=== PATIENT | female | born 1965 | race Caucasian/White ===

== ENCOUNTER → 2016-12-31 | Outpatient (CLI) | payer BC ==
[~2016-12-31] MED LIST: CITA20TA4 PO
--- NOTE | 2017-01-01 07:38 | MAMMOGRAPHY REPORT ---
BILATERAL DIGITAL SCREENING MAMMOGRAM TOMOSYNTHESIS WITH CAD: 12/31/2016 CLINICAL HISTORY: Routine screening. Patient has no complaints. TECHNIQUE: Breast tomosynthesis in addition to standard 2D mammography was performed. Current study was also evaluated with a Computer Aided Detection (CAD) system. COMPARISON: Comparison is made to exams dated: 12/29/2015 mammogram, 12/28/2013 mammogram, 12/28/2012 mamm ogram, 12/24/2011 mammogram, 08/22/2010 mammogram - [facility], and 05/27/2008. BREAST COMPOSITION: There are scattered areas of fibroglandular density in both breasts. FINDINGS: Numerous circular mole markers overlie the breasts. There is a stable ribbon shaped metal lic biopsy marker in the left upper outer quadrant. No new suspicious mass, architectural distortion or cluster of microcalcifications is seen. IMPRESSION: ACR BI-RADS CATEGORY 1: NEGATIVE There is no mammographic evidence of malignancy. A 1 year screening mammogram is recommended. The pa tient will receive written notification of the results. Approximately 10% of breast cancers are not detected with mammography. A negative mammographic report should not delay biopsy if a clinically suggestive mass is present. Roxanne Fuller M.D. ay/:12/31/2016 17:14:19 [place]: Sanam BRADSHAW(J Carlos)(M), [facility] letter sent: Normal 1/2 BI-RADS Code: ACR BI-RADS Category 1: Negative
== END | disposition home or self-care (01) ==
LOC: C.MAMM 12:13
PROVIDERS: ATTEND Family Medicine
DX: Z12.31 Encounter for screening mammogram for malignant neoplasm of breast (principal)

== ENCOUNTER 2018-10-16 07:53 | Observation (INO) ==
--- NOTE | 2018-09-30 10:43 | PAT Medication Instructions ---
Medication Instructions Date of Service September 30, 2018 Home Medications diphenhydramine HCl [Benadryl] 50 - 75 mg PO HS Take morning of surgery NOTHING TO EAT OR DRINK AFTER MIDNIGHT Take evening before surgery diphenhydramine HCl [Benadryl] 50 - 75 mg PO HS Other Notes If you have any questions please call us at [phone] or [phone] or [phone] or [phone]
--- NOTE | 2018-09-30 11:49 | Anesthesiology Consultation ---
Date of Service September 30, 2018 Assessment & Plan (1) Encounter for pre-operative examination: Chart Review Chart Review: Acceptable Risk for Surgery and Patient seen in Pre Admission Testing Consults Requested none Teaching & Discussion Pre-Anesthesia Teaching/Discussion Notes: Instructed NPO after midnight before surgery, except medications with 15 cc of water. Medication instructions provided according to the PAT guidelines. History Surgery Operation Date: 10/16/18 07:00 Proposed Procedures p Total Laparoscopic Hysterectomy, Bilateral Salpingectomy and Cystoscopy, Possible Bilateral Salpingo-Oophorectomy - Ami Charles Height/Weight Height: 5 ft 8 in Weight: 102.5 kg Allergies Allergy/AdvReac Type Severity Reaction Status Date / Time amoxicillin Allergy Unknown RASH, Verified 09/29/18 08:36 SWELLING prednisone Allergy Unknown MOOD SWINGS Verified 09/29/18 08:36 Sulfa (Sulfonamide Allergy Unknown RASH, Verified 09/29/18 08:36 Antibiotics) SWELLING Medications Home Medications Medication Instructions Recorded Confirmed Last Taken diphenhydramine HCl [Benadryl] 50 - 75 mg PO HS 09/29/18 09/29/18 Unknown Past Medical History Medical History Anxiety History of kidney stones Neurofibromatosis Uterine fibroid Past Surgical History Surgical History History of breast biopsy History of colonoscopy W/ POLYPECTOMY History of lithotripsy History of tonsillectomy and adenoidectomy History of wisdom tooth extraction Past Anesthesia History No Hx of Anesthesia Complications and No Family Hx of Anesthesia Complications History of PONV No Motion Sickness Screening History of Motion Sickness: No Social History Smoking Status: Never smoker Do You Dip or Chew Tobacco: No Hx Alcohol Use: Yes Alcohol type: wine alcohol intake frequency: holidays/special occasions only Hx Substance Use: No substance use type: does not use Exercise / Class Metabolic Activity II 4-5 Yardwork/Stairs/Walk up hill (Able to climb FOS. Denies CP or SOB. ) Review of Systems Patient denies chest pain, shortness of breath, dyspnea on exertion, joint pain, reflux, cough, wheezing, palpitations. Physical Exam Vital Signs BP: 125/81 P: 90 R: 16 T: 94% on RA SPO2: 97.6 Constitutional + obese ENMT Thyromental Distance: > or= 3.5 Finger Breadths (3.5) Mallampati Class: II Neck normal visual inspection and trachea midline; neck extension not limited Respiratory normal respiratory effort Auscultation: lungs clear to auscultation bilaterally Cardiovascular Rate/Rhythm: regular rate and regular rhythm Heart Sounds: no murmur Vessels: no carotid bruit Neurologic moves all extremities Psychiatric Orientation: alert and oriented x 3 Testing Electrocardiogram Date: 09/30/18 Findings: + NSR @ (73) Laboratory Results 09/30/18 12:11 Blood Type A Positive 09/30/18 12:11 Antibody Screen NEGATIVE 09/30/18 12:11
[2018-09-30 12:47] LABS: Basophils # (auto) 0.05 K/uL (0-0.2); Basophils % (auto) 0.5 %; Hematocrit (blood only) 36.1 % (37-47); Hemoglobin 11.1 g/dL (12.0-16.0); Immature Granulocytes # (auto) 0.08 K/uL (0.00-0.02); Immature Granulocytes % (auto) 0.8 %; Lymphocytes # (auto) 2.41 K/uL (1.2-3.4); Lymphocytes % (auto) 24.1 %; Mean Corpuscular Hgb Conc 30.7 g/dL (32-36); Mean Corpuscular Volume 71.5 fL (80-100); Mean Platelet Volume 8.7 fL (7.4-10.4); Monocytes # (auto) 0.71 K/uL (0.11-0.59); Monocytes % (auto) 7.1 %; Neutrophils # (auto) 6.57 K/uL (1.4-6.5); Neutrophils % (auto) 65.5 %; Platelet Count 411 K/uL (130-400); RDW Coefficient of Variation 16.6 % (11.5-14.5); RDW Standard Deviation 42.8 fL (36.4-46.3); Red Blood Count 5.05 M/uL (4.2-5.4); White Blood Count 10.02 K/uL (4.8-10.8)
[2018-09-30 13:07] LABS: RBC Morphology Unremarkable
[~2018-10-16 07:53] MED LIST changes: -CITA20TA4 PO; +CLINDAMYCIN 600 MG/54 ML BAG IV SCH; +GENTAMICIN SULFATE 150 MG in DEXTROSE 5% 100 ML IV SCH; +LACTATED RINGER'S 1,000 ML IV SCH; +LR 15ML/HR IV SCH
[2018-10-16] MEDS ORDERED: DEXAMETHASONE SOD INJ 4 MG/ML VIAL ONE (08:17)
[2018-10-16] MEDS ORDERED: ONDANSETRON INJ 2 MG/ML 2 ML VIAL ONE ×2 (08:17→11:31)
[2018-10-16] MEDS ORDERED: PROPOFOL IV EMULSION 10 MG/ML 20 ML VIAL IV ONE (08:17)
[2018-10-16] MEDS ORDERED: LIDOCAINE HCL 2% 2 ML VIAL/AMP(20MG/ML) INFIL ONE (08:17)
[2018-10-16] MEDS ORDERED: GLYCOPYRROLATE 0.2 MG/ML VIAL ONE (08:17)
[2018-10-16] MEDS ORDERED: NEOSTIGMINE METHYLSULFATE 5 MG/5 ML SYR ONE (08:17)
[2018-10-16] MEDS ORDERED: fentaNYL citrate 100 MCG/2 ML VIAL ONE (08:18)
[2018-10-16] MEDS ORDERED: MIDAZOLAM HCL 1 MG/ML 2ML VIAL ONE (08:18)
[2018-10-16] MEDS ORDERED: ONDANSETRON INJ 2 MG/ML 2 ML VIAL IV PRN ×2 (08:20→12:40)
[2018-10-16] MEDS ORDERED: PROMETHAZINE HCL 12.5 MG in SODIUM CHLORIDE 0.9% 50 ML IV PRN (08:20)
[2018-10-16] MEDS ORDERED: HYDROmorphone INJ 1 MG/ML SYRINGE IV PRN (08:20)
[2018-10-16] MEDS ORDERED: ATROPINE SULFATE 0.1 MG/ML 10ML SYR IV PRN (08:20)
[2018-10-16] MEDS ORDERED: fentaNYL citrate 100 MCG/2 ML VIAL IV PRN (08:20)
[2018-10-16] MEDS ORDERED: PHENYLEPHRINE 100MCG/ML 5ML SYR IV PRN (08:20)
[2018-10-16] MEDS ORDERED: ePHEDrine sulfate 50 MG/ML AMP IV PRN (08:20)
--- NOTE | 2018-10-16 08:37 | History & Physical Bridge Note ---
Date of Service October 16, 2018 History & Physical Bridge Note I have examined the patient, reviewed the History & Physical and in the interval since the performance of the History & Physical I have noted the following changes of clinical significance: no changes noted
[2018-10-16] MEDS ORDERED: VASOPRESSIN 20 UNIT/ML VIAL ONE (08:56)
[2018-10-16] MEDS ORDERED: BUPIVACAINE 0.5 % 5 MG/1 ML MPF 30ML VIAL ONE (08:56)
[2018-10-16] MEDS ORDERED: HYDROmorphone INJ 2 MG/ML SYR/VIAL ONE (10:30)
[2018-10-16] MEDS ORDERED: ROCURONIUM BROMIDE 10 MG/ML 5 ML VIAL ONE (10:34)
[2018-10-16] MEDS ORDERED: METHYLENE BLUE 0.5% 10 ML VIAL ONE (11:53)
[2018-10-16] MEDS ORDERED: ePHEDrine sulfate 50 MG/ML SYR ONE (12:24)
--- NOTE | 2018-10-16 12:44 | Post Operative Brief Note ---
Immediate Post Op Note v1 Date of Surgery October 16, 2018 Pre & Post Diagnosis Operation Date: 10/16/18 10:10 Pre-Op Diagnosis: Abnormal Uterine Bleeding, Uterine Fibroids Post-Op Diagnosis: Abnormal Uterine Bleeding, Uterine Fibroids Procedure Operation Date: 10/16/18 10:10 Actual Procedures p Total Laparoscopic Hysterectomy, Bilateral Salpingectomy and Cystoscopy(Not Applicable) - Ami Charles Surgeon Ami Charles Laboratory Technician Juani Cornoa PA-C Estimated Blood Loss 150 Findings Consistent with Post-Op Diagnosis Drains Ramsey Catheter
[2018-10-16] MEDS ORDERED: KETOROLAC 30 MG/ML VIAL ONE (12:54)
--- NOTE | 2018-10-16 13:07 | Operative Report ---
Post Operative Report Pre & Post Diagnosis Operation Date: 10/16/18 10:10 Pre-Op Diagnosis: Abnormal Uterine Bleeding, Uterine Fibroids Post-Op Diagnosis: Abnormal Uterine Bleeding, Uterine Fibroids Procedure Operation Date: 10/16/18 10:10 Actual Procedures p Total Laparoscopic Hysterectomy, Bilateral Salpingectomy and Cystoscopy(Not Applicable) - Ami Charles Surgeon Ami Charles Bonding Machine Tender Juani Corona PA-C Estimated Blood Loss 150 Findings See Below 1. Enlarged fibroid uterus approximately 16 cm 2. Normal appearing ovaries bilaterally 3. Right fallopian tube with a simple appearing cyst 4. Normal left fallopian tube 5. Normal appearing anterior and posterior cul de sacs 6. Normal appearing liver edge 7. Normal appearing appendix 8. On cystoscopy, bilateral efflux of urine by ureteral orifices 8. On cystoscopy, cystic like nodules on the trigone and near the left ureteral orifice (most likely squamous metaplasia after pictures reviewed with Urology) Fluids 1700 Specimens Fibroid uterus, cervix, and bilateral fallopian tubes Drains Calderon catheter removed prior to the end of the case Anesthesia Type General Complications none Indications 53 yo with uterine fibroids and abnormal uterine bleeding desiring definitive surgical management via hysterectomy. Description of Procedure Under GA in the dorsal lithotomy position, the patient was prepped and drapped in the usual sterile fashion. Beginning at the vagina, a calderon catheter was inserted under sterile conditions and left in situ for the remainder of the case. A weighted speculum was then placed in the vagina and with the help of a right angle retractor the cervix was visualized and grasped anteriorly with a single tooth tenaculum. A stay suture was placed on the anterior lip of the cervix. The cervix was sounded to 12 cm with a uterine sound (on bimanual exam the uterine fundus was palpated at the level of the umbilicus) The cervical os was dilated. An [employer] uterine manipulator with a metal cup was inserted. The weighted speculum was then removed. Attention was then turned to the abdomen. 0.5% marcaine solution was used for infiltration of all port sites. Beginning in the supraumbilical area, the skin was first infiltrated with ~ 2 cc of the marcaine solution, then a 5 mm incision was made through the skin with a #11 blade. Direct entry with a 5 mm trocar, laparoscope and sleeve was made into the peritoneal cavity. The opening pressure was < 8 mmHg. The peritoneal cavity was insufflated with CO2 gas to a maximum pressure of 20 mmHg. Examination of the peritoneal cavity revealed no signs of injury from entry and the above noted findings. The patient was then placed in steep Trendelenburg and three more 5 mm trocars were placed, one on the right and two on the left, in the standard technique, taking care to avoid the epigastric vessels. All trocars were placed under direct visualization with no inadvertent damage to underlying structures. The uterus was upheld from below and revealed an enlarged uterus and normal tubes with cyst on right fallopian tube and normal appearing ovaries. Beginning on the left side and working distally along the length of the fallopian tube, the mesosalpinx was exposed by lifting the tube up towards the anterior abdominal wall. The mesosalpinx was then sequentially, clamped, ligated, and cut using the REGGIE Harmonic working alongside the length of the tube and towards the cornua. Once the level of the cornua was reached the tube was ligated and cut . Attention was then turned to the other side. The same process was repeated on the right, sequentially clamping, ligating, and cutting the mesosalpinx being sure to not injure the adjacent ovarian tissue or other aidee rounding structures. The round ligament was then ligated and cut. Following this, the anterior leaf of the broad ligament was then taken down on the right side, dissecting down towards the peritoneal reflection at the base of the bladder and adjacent to the cervix. The same process was then repeated on the left side such that both sides met and the anterior leaflet had been appropriately skeletonized. Once the bladder was appropriately dissected free from the lower anterior uterine segment and the tissues skeletonized, the uterine arteries were bilaterally clamped and ligated. Pedicles were checked and hemostatic. At the level of the metal cup of the uterine manipulator, the vaginal vault was incised circumferentially with the REGGIE Harmonic. The fibroid uterus was then debulked with a scalpel and then delivered with the tubes and ovaries through the vagina and sent to pathology. A vaginal occluder was then placed into the vagina to form a pneumatic seal and all the pedicles as well as the cuff edges were examined. The vaginal vault was then closed with a V-Loc barbed stitch being sure to avoid the bladder lateral pedicles. Following vault closure, an inspection of all areas was made to ensure hemostasis. Copious irrigation was then performed and hemostasis was once again noted. Tisseal was then placed on all surgical bed and the ovaries. All ports were removed under direct vis ualization and hemostasis noted. All the incision sites were then closed with 4- 0 monocryl sutures in a subcuticular fashion and dermabond. The vaginal occluder and calderon catheter were removed without incident. Cystoscopy was then performed with a 30 degree scope. Normal appearing bladder dome free of suture. Cysts noted along the trigone and by the left ureteral orifice. Bilateral efflux of urine by the ureteral orifices was noted. The bladder was drained and the cystoscope removed without incident. At the end of the procedure, all sponges, instruments, and sharps were counted and correct. Estimated blood loss was 150 ml. The patient was taken to recovery in stable condition. I attest to the content of the Intraoperative Record and any orders documented therein. Any exceptions are noted below.
[2018-10-16] MEDS ORDERED: OXYCODONE/ACETAMINOPHEN 5mg/325mg TAB PO PRN (13:20)
--- NOTE | 2018-10-16 13:45 | Anesthesiology Progress Note ---
Date of Service October 16, 2018 Anesthesia Post Procedure Vital Signs Vital Signs: Temp Pulse Pulse Resp BP Pulse Ox 10/16/18 13:40 36.9 C 68 16 112/69 94 10/16/18 13:30 70 20 122/73 93 10/16/18 13:20 70 15 108/65 95 10/16/18 13:10 67 15 108/66 98 10/16/18 13:00 73 15 113/71 98 10/16/18 12:54 36.5 C 79 14 126/84 98 10/16/18 08:16 36.6 C 85 16 144/93 H 98 Notes Mental Status: alert / awake / arousable and participated in evaluation Patient Amnestic to Procedure: Yes Nausea / Vomiting: adequately controlled Pain: adequately controlled Airway Patency, RR, SpO2: stable & adequate BP & HR: stable & adequate Hydration State: stable & adequate Anesthetic Complications: no major complications apparent Notes: Awake, doing well, no complaints, VSS.
[2018-10-16] MEDS ORDERED: ALBUTEROL HFA 8 GM INHALER INH PRN (14:07)
[2018-10-16] MEDS: ACETAMINOPHEN 325 MG TAB PO SCH ×3 (15:21→23:41)
[2018-10-16] MEDS: IBUPROFEN 600 MG TAB PO SCH ×2 (16:02→22:04)
[2018-10-16] MEDS: SIMETHICONE 80 MG CHEW PO SCH ×2 (17:00→23:41)
[2018-10-16] MEDS ORDERED: OXYCODONE HCL IR 5 MG TAB (IMMEDIATE RELEASE) PO PRN (20:45)
[2018-10-16] MEDS: DOCUSATE SODIUM 100 MG CAP PO SCH (20:55)
[2018-10-17] MEDS: IBUPROFEN 600 MG TAB PO SCH (04:19)
[2018-10-17 06:09] LABS: Basophils # (auto) 0.03 K/uL (0-0.2); Basophils % (auto) 0.2 %; Eosinophils # (auto) 0.12 K/uL (0-0.5); Eosinophils % (auto) 0.9 %; Hematocrit (blood only) 30.7 % (37-47); Hemoglobin 9.5 g/dL (12.0-16.0); Immature Granulocytes # (auto) 0.13 K/uL (0.00-0.02); Lymphocytes # (auto) 2.33 K/uL (1.2-3.4); Mean Corpuscular Hgb Conc 30.9 g/dL (32-36); Mean Corpuscular Volume 71.1 fL (80-100); Mean Platelet Volume 8.6 fL (7.4-10.4); Monocytes # (auto) 0.91 K/uL (0.11-0.59); Neutrophils # (auto) 9.39 K/uL (1.4-6.5); Neutrophils % (auto) 72.9 %; Platelet Count 341 K/uL (130-400); RDW Coefficient of Variation 17.3 % (11.5-14.5); RDW Standard Deviation 44.8 fL (36.4-46.3); Red Blood Count 4.32 M/uL (4.2-5.4); White Blood Count 12.91 K/uL (4.8-10.8)
[2018-10-17] MEDS: SIMETHICONE 80 MG CHEW PO SCH (06:10)
[2018-10-17] MEDS: ACETAMINOPHEN 325 MG TAB PO SCH (06:10)
[2018-10-17 06:34] LABS: Hypochromasia Present; Microcytosis Present
[2018-10-17] MEDS: DOCUSATE SODIUM 100 MG CAP PO SCH (08:52)
--- NOTE | 2018-10-17 08:55 | Gynecologic Progress Note ---
Date of Service October 17, 2018 Assessment & Plan (1) S/P laparoscopic hysterectomy: POD#1. s/p TLH/BS/Cystoscopy for AUB and uterine fibroids. Patient meeting all discharge criteria. Discharge home with instructions. Post-op medications previously provided. Present on Admission?: No Subjective Patient with c/o gas this morning. Tolerating regular diet. Pain controlled with PO medications. Urinating without difficulty. +Ambulation. Denies N/V, fevers, chills, SOB or CP. Physical Exam Constitutional: + obese Respiratory: normal respiratory effort Auscultation: lungs clear to auscultation bilaterally Cardiovascular: Rate/Rhythm: regular rate and regular rhythm Heart Sounds: no murmur Vessels: no carotid bruit Gastrointestinal (Abdomen): Inspection/Auscultation: abdomen normal to inspection, normal bowel sounds and + abdominal surgical incision (Incisions clean, dry and intact. Ecchymosis over the LLQ. ) Appropriately tender to palpation. Psychiatric: Orientation: alert and oriented x 3 Results & Data Vital Signs (Past 12 Hours) Vital Signs Temp Pulse Resp BP Pulse Ox 10/17/18 08:45 36.5 C 78 18 130/84 95 10/17/18 08:00 36.5 C 78 18 130/84 95 10/17/18 03:05 36.9 C 84 18 120/71 92 10/16/18 23:30 37 C 87 18 129/76 93
--- NOTE | 2018-10-17 09:02 | Discharge Summary ---
Date of Service October 17, 2018 Admission HPI Per Admitting Provider 53 yo with abnormal uterine bleeding and heavy menstrual bleeding. Patient with heavy menses since 2014. Patient now with abnormal uterine bleeding. Last menstrual cycle 5 months ago wiht return in Jun 2018. Menses lasted for 5 days with 3 days of heavy bleeding, requiring Patient to change maxipad every hour. Patient had an evaluation in 2014 for heavy menstrual bleeding which included a negative endometrial biopsy and pelvic ultrasound consistent with uterine fibroids. Denies intermenstrual bleeding or post-coital bleeding. Denies abnormal vaginal discharge or pelvic pain. Denies urinary or bowel symptoms. Recent EMBx in Aug 2018 wnl. Pap smear NILM/+HPV. Recent TVUS revealed an enlarged fibroid uterus (approximately 16 cm) Admission Exam (Per Admitting) Constitutional + obese Respiratory normal respiratory effort Auscultation: lungs clear to auscultation bilaterally Cardiovascular Rate/Rhythm: regular rate and regular rhythm Heart Sounds: no murmur Vessels: no carotid bruit Gastrointestinal (Abdomen) Inspection/Auscultation: abdomen normal to inspection, normal bowel sounds and + abdominal surgical incision (Incisions clean, dry and intact. Ecchymosis over the LLQ. ) Psychiatric Orientation: alert and oriented x 3 Discharge Data Procedures Performed Operation Date: 10/16/18 10:10 Actual Procedures p Total Laparoscopic Hysterectomy, Bilateral Salpingectomy and (Not Applicable) - Ami Charles s Cystoscopy(Not Applicable) [facility] S/P laparoscopic hysterectomy: POD#1. s/p TLH/BS/Cystoscopy for AUB and uterine fibroids. Patient meeting all discharge criteria. Discharge home with instructions. Post-op medications previously provided. Discharge Instructions POST OPERATIVE: BOWEL FUNCTION/MEDICATIONS: 1. Constipation pain and discomfort are the most common complaints 5-7 days after surgery. Points 2-6 address the things that can help. 2. Chewing gum can help stimulate the gut and help improve digestion and motility. 3. Milk of Magnesia 1-2 times per day until return of bowel function. 4. Colace is a stool softener that helps. Taking this 2-3 times per day until bowel function returns to normal is highly recommended. 5. Dulcolax is a laxative that may be used if several days have passed without a bowel movement. Alternatively Miralax may be used daily instead. 6. Drink plenty of fluids as this will also reduce constipation. 7. Narcotic pain medications will be prescribed by your physician. They are safe to use and we encourage you to use them. If you are not allergic, ibuprofen will also be prescribed. Many patients will be able to transition off of the narcotic medications to ibuprofen by postoperative day 3. ACTIVITY RECOMMENDATIONS: 1. Get plenty of rest and listen to your body. If you are tired, take a nap. 2. You may shower, but do not take a tub bath until you see your doctor at the 2 week post operative visit. 3. Absolutely NO intercourse and nothing in the vagina until you are examined by your doctor. At that visit it will be determined when such activities can be resumed. This can range from 6-12 weeks after your aidee rahat depending on healing time. 4. The main physical activity in the first week should be walking. By the second week you can slowly increase activity. There are no limits on walking up and down stairs. 5. Do not lift more than 5-10 lbs for 4 weeks. Remember the "one-handed rule", i.e. if you can lift something with only one hand it's likely okay. 6. Minimize consumer services advisor like vacuuming and exercising for 4 weeks. "Overdoing it" can lead to incisions not healing, pain and vaginal bleeding, so again, listen to your body. 7. Driving can be resumed when you feel able. Do not drive within 24 hours of taking a narcotic medication. EXPECTATIONS: 1. Vaginal spotting, bleeding and discharge are common after surgery. There may even be an odor to the discharge which is often related to sutures used in the vagina. If you experience heavy vaginal bleeding, call the office number day or night [phone]. 2. Bladder discomfort is common after surgery from the catheter. This usually resolves in 1-2 weeks. 3. By the end of the 3rd or 4th week you should be feeling much better. It may take up to 6 weeks for your energy levels to return to normal. 4. Narcotic medications have side effects such as: dizziness, headache, nausea and/or vomiting. If you suspect your pain medication is causing problems, call our office and we may be able to prescribe an alternate medication. 5. The skin incisions are often covered with a liquid bandage. This will gradually peel off over time. CALL THE OFFICE IF YOU HAVE ANY OF THE FOLLOWIN. Temperature of 101 degrees or higher. 2. Severe abdominal or pelvic pain not relieved by pain medication. 3. Persistent nausea or vomiting. 4. Increased pain with urination or difficulty urinating. 5. Bright red bleeding that soaks more than 1 pad per hour. CONTACT PHONE NUMBERS: Main Office: [phone] Avoid all tobacco products. If you need help to stop smoking, call [place]'s FREE QUITLINE at . This is a free call.
== END 2018-10-17 09:35 | disposition home or self-care (01) ==
LOC: ASU 07:53 → 4N 07:53